=== PATIENT | female | born 1950 | race Caucasian/White ===

== ENCOUNTER 2018-10-04 15:15 | Emergency (ER) | payer MEDICARE | END 2018-10-04 21:01 | disposition home or self-care (01) | LOC: FTE 15:15 | DX: B02.9 Zoster without complications (principal) | CPT/HCPCS: 99283 ==

== ENCOUNTER 2018-11-20 15:43 | Emergency (ER) | payer MEDICARE, MEDICAID | END 2018-11-20 18:07 | disposition home or self-care (01) | LOC: FTE 15:43 | DX: B02.29 Other postherpetic nervous system involvement (principal); R20.2 Paresthesia of skin | CPT/HCPCS: 99283 ==